=== PATIENT | female | born 1945 | race African-American/Black ===

== ENCOUNTER 2018-05-16 06:58 | Inpatient (IN) | payer MEDICARE ==
[2018-05-16] MEDS ORDERED: ASPIRIN PO ONE (07:15)
[2018-05-16 07:52] LABS: Basophils % (Auto) 0.6 % (0.0-1.8); Eosinophils # (Auto) 0.1 K/mm3 (0.0-0.4); Eosinophils % (Auto) 0.7 % (0.0-4.3); Hematocrit 37.3 % (30.3-42.9); Hemoglobin 12.4 gm/dl (10.1-14.3); Lymphocytes # (Auto) 1.8 K/mm3 (1.2-5.4); Lymphocytes % (Auto) 22.3 % (13.4-35.0); Mean Corpuscular HGB Conc 33 % (30-34); Mean Corpuscular Hemoglobin 32 pg (28-32); Mean Corpuscular Volume 96 fl (79-97); Monocytes # (Auto) 0.8 K/mm3 (0.0-0.8); Monocytes % (Auto) 10.7 % (0.0-7.3); Platelet Count 262 K/mm3 (140-440); Red Blood Count 3.91 M/mm3 (3.65-5.03); Red Cell Distribution Width 12.9 % (13.2-15.2)
[2018-05-16 08:03] LABS: BUN/Creatinine Ratio 29; Blood Urea Nitrogen 20 mg/dL (7-17); Calcium 9.2 mg/dL (8.4-10.2); Hemolysis Index 7
--- NOTE | 2018-05-16 08:47 | Emergency Department Report ---
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 Her past medical history includes hypertension and cholesterol as well as arthritis. She presents to the ER today with complaint of generalized weakness and inability to walk. She believes her symptoms started when she woke up at around 5:00 in the morning but is not certain. She admits to mild headache. She denies chest pain, shortness of breath, focal extremity weakness, denies vertigo, does admit to nonspecific range in the ears. She indicates no change in auditory acuity. Her symptoms are constant, they worsen when she attempts to walk, decreased with rest, and do not radiate anywhere. -: unknown Consistency: constant Improves with: rest Worsens with: movement Associated Symptoms: headaches, loss of appetite, malaise, weakness. denies: confusion, chest pain, cough, diaphoresis, fever/chills, nausea/vomiting, rash, seizure, shortness of breath, syncope - Related Data Allergies Allergy/AdvReac Type Severity Reaction Status Date / Time Penicillins Allergy Angioedema Verified 08/20/16 20:35 ED Review of Systems ROS: Stated complaint: ABD PAIN Other details as noted in HPI Constitutional: malaise Eyes: denies: eye discharge ENT: denies: epistaxis Respiratory: denies: cough Cardiovascular: denies: chest pain Gastrointestinal: denies: abdominal pain Genitourinary: denies: dysuria Musculoskeletal: denies: back pain Neurological: headache, weakness, abnormal gait Psychiatric: anxiety ED Past Medical Hx - Past Medical History Hx Hypertension: Yes Hx Arthritis: Yes Additional medical history: cholesterol, - Social History Smoking Status: Never Smoker Substance Use Type: None ED Physical Exam - General Limitations: Language Barrier General appearance: alert, in no apparent distress - Head Head exam: Present: atraumatic, normocephalic - Eye Eye exam: Present: normal appearance, PERRL, EOMI. Absent: nystagmus - ENT ENT exam: Present: normal exam, normal orophraynx, mucous membranes moist, TM's normal bilaterally, normal external ear exam, other (there is no mastoid tenderness) - Neck Neck exam: Present: normal inspection, full ROM. Absent: tenderness, meningismus - Respiratory Respiratory exam: Present: normal lung sounds bilaterally. Absent: respiratory distress, wheezes, rales, rhonchi, stridor, chest wall tenderness - Cardiovascular Cardiovascular Exam: Present: regular rate, normal rhythm, normal heart sounds. Absent: bradycardia, tachycardia, irregular rhythm, systolic murmur, diastolic murmur, rubs, gallop - GI/Abdominal GI/Abdominal exam: Present: soft, normal bowel sounds. Absent: distended, tenderness, guarding, rebound, rigid, pulsatile mass - Extremities Exam Extremities exam: Present: normal inspection, full ROM, normal capillary refill , other (2+ pulses noted in the bilateral upper, lower extremities. Compartments soft. No long bony tenderness. The pelvis is stable.). Absent: pedal edema, joint swelling, calf tenderness - Back Exam Back exam: Present: normal inspection, full ROM. Absent: tenderness, CVA tenderness (R), paraspinal tenderness, vertebral tenderness - Neurological Exam Neurological exam: Present: alert, CN II-XII intact, abnormal gait, other ( Extraocular movements intact. Tongue midline. No facial droop. Facial sensation intact to light touch in the V1, V2, V3 distribution bilaterally. 5 and 5 strength in 4 extremities.. Sensation is intact to light touch in 4 extremities.). Absent: motor sensory deficit - Psychiatric Psychiatric exam: Present: flat affect - Skin Skin exam: Present: warm, dry, intact, normal color. Absent: rash ED Course Vital Signs 05/16/18 05/16/18 05/16/18 07:03 09:25 09:30 Temperature 98.2 F Pulse Rate 65 62 60 Respiratory 16 14 16 Rate Blood Pressure 122/65 168/72 167/72 O2 Sat by Pulse 97 95 94 Oximetry 05/16/18 05/16/18 10:01 10:18 Temperature Pulse Rate 62 Respiratory 10 L 16 Rate Blood Pressure 169/61 O2 Sat by Pulse 95 98 Oximetry ED Medical Decision Making - Lab Data Result diagrams: 05/16/18 07:27 05/16/18 07:27 Vital Signs 05/16/18 05/16/18 05/16/18 07:03 09:25 09:30 Temperature 98.2 F Pulse Rate 65 62 60 Respiratory 16 14 16 Rate Blood Pressure 122/65 168/72 167/72 O2 Sat by Pulse 97 95 94 Oximetry 05/16/18 05/16/18 10:01 10:18 Temperature Pulse Rate 62 Respiratory 10 L 16 Rate Blood Pressure 169/61 O2 Sat by Pulse 95 98 Oximetry Lab Results 05/16/18 05/16/18 05/16/18 Range/Units 07:27 07:27 08:56 WBC 8.0 (4.5-11.0) K/mm3 RBC 3.91 (3.65-5.03) M/mm3 Hgb 12.4 (10.1-14.3) gm/dl Hct 37.3 (30.3-42.9) % MCV 96 (79-97) fl MCH 32 (28-32) pg MCHC 33 (30-34) % RDW 12.9 L (13.2-15.2) % Plt Count 262 (140-440) K/mm3 Lymph % (Auto) 22.3 (13.4-35.0) % [place] % (Auto) 10.7 H (0.0-7.3) % Eos % (Auto) 0.7 (0.0-4.3) % Baso % (Auto) 0.6 (0.0-1.8) % Lymph # 1.8 (1.2-5.4) K/mm3 [place] # 0.8 (0.0-0.8) K/mm3 Eos # 0.1 (0.0-0.4) K/mm3 Baso # 0.0 (0.0-0.1) K/mm3 Seg Neutrophils % 65.7 (40.0-70.0) % Seg Neutrophils # 5.2 (1.8-7.7) K/mm3 PT 13.5 (12.2-14.9) Sec. INR 0.98 (0.87-1.13) Sodium 141 (137-145) mmol/L Potassium 4.1 (3.6-5.0) mmol/L Chloride 101.6 (98-107) mmol/L Carbon Dioxide 23 (22-30) mmol/L Anion Gap 21 mmol/L BUN 20 H (7-17) mg/dL Creatinine 0.7 (0.7-1.2) mg/dL Estimated GFR > 60 ml/min BUN/Creatinine Ratio 29 % Glucose 116 H (65-100) mg/dL Calcium 9.2 (8.4-10.2) mg/dL Magnesium (1.7-2.3) mg/dL Total Creatine Kinase (30-135) units/L Troponin T < 0.010 (0.00-0.029) ng/mL Urine Color (Yellow) Urine Turbidity (Clear) Urine pH (5.0-7.0) Ur Specific [place] (1.003-1.030) Urine Protein (Negative) mg/dL Urine Glucose (UA) (Negative) mg/dL Urine Ketones (Negative) mg/dL Urine Blood (Negative) Urine Nitrite (Negative) Urine Bilirubin (Negative) Urine Urobilinogen (<2.0) mg/dL Ur Leukocyte Esterase (Negative) Urine WBC (Auto) (0.0-6.0) /HPF Urine RBC (Auto) (0.0-6.0) /HPF Urine Mucus /HPF 05/16/18 05/16/18 05/16/18 Range/Units 08:56 10:11 12:15 WBC (4.5-11.0) K/mm3 RBC (3.65-5.03) M/mm3 Hgb (10.1-14.3) gm/dl Hct (30.3-42.9) % MCV (79-97) fl MCH (28-32) pg MCHC (30-34) % RDW (13.2-15.2) % Plt Count (140-440) K/mm3 Lymph % (Auto) (13.4-35.0) % [place] % (Auto) (0.0-7.3) % Eos % (Auto) (0.0-4.3) % Baso % (Auto) (0.0-1.8) % Lymph # (1.2-5.4) K/mm3 [place] # (0.0-0.8) K/mm3 Eos # (0.0-0.4) K/mm3 Baso # (0.0-0.1) K/mm3 Seg Neutrophils % (40.0-70.0) % Seg Neutrophils # (1.8-7.7) K/mm3 PT (12.2-14.9) Sec. INR (0.87-1.13) Sodium (137-145) mmol/L Potassium (3.6-5.0) mmol/L Chloride (98-107) mmol/L Carbon Dioxide (22-30) mmol/L Anion Gap mmol/L BUN (7-17) mg/dL Creatinine (0.7-1.2) mg/dL Estimated GFR ml/min BUN/Creatinine Ratio % Glucose (65-100) mg/dL Calcium (8.4-10.2) mg/dL Magnesium 2.20 (1.7-2.3) mg/dL Total Creatine Kinase 202 H (30-135) units/L Troponin T < 0.010 (0.00-0.029) ng/mL Urine Color Colorless (Yellow) Urine Turbidity Clear (Clear) Urine pH 7.0 (5.0-7.0) Ur Specific [place] 1.030 (1.003-1.030) Urine Protein <15 mg/dl (Negative) mg/dL Urine Glucose (UA) Neg (Negative) mg/dL Urine Ketones Neg (Negative) mg/dL Urine Blood Neg (Negative) Urine Nitrite Neg (Negative) Urine Bilirubin Neg (Negative) Urine Urobilinogen < 2.0 (<2.0) mg/dL Ur Leukocyte Esterase Neg (Negative) Urine WBC (Auto) < 1.0 (0.0-6.0) /HPF Urine RBC (Auto) 1.0 (0.0-6.0) /HPF Urine Mucus Few /HPF - EKG Data -: EKG Interpreted by Ny EKG shows normal: sinus rhythm, axis, intervals, QRS complexes, ST-T waves - EKG Data When compared to previous EKG there are: previous EKG unavailable 05/16/18 13:15 Sinus, 65 bpm, normal axis, normal intervals, motion artifact, not a stemi - Radiology Data Radiology results: report reviewed, image reviewed Noncontrast CT scan of the brain is negative. The CT angiogram of the head and neck is negative for significant findings. - Medical Decision Making Differential diagnosis, including a not limited to: Labyrinthitis, subacute stroke, deconditioning, unsteady gait 73-year-old female with the complaint of unsteady gait. She may have woken up with symptoms, we do not have a exact onset. She has an NIH score of 0. She is therefore not a TPA candidate. A CT scan of the head is negative, and an angiogram does not demonstrate any lesions that would require transfer for emergent endovascular intervention. She was given aspirin, IV fluids and meclizine. Her symptoms did not change. She will therefore be admitted for further evaluation. Case was presented to the Hospital physician, Dr. Reid, who accepted the patient to his service. Critical care attestation.: If time is entered above; I have spent that time in minutes in the direct care of this critically ill patient, excluding procedure time. ED Disposition Clinical Impression: Unsteady gait Disposition: DC-09 OP ADMIT IP TO THIS HOSP Is pt being admited?: Yes Condition: Good Referrals: PRIMARY CARE, [Primary Care Provider] - 3-5 Days
[2018-05-16 09:12] LABS: INR 0.98 (0.87-1.13)
--- NOTE | 2018-05-16 09:19 | Cat Scan Report ---
CT HEAD WITHOUT CONTRAST: HISTORY: Dizzy. TECHNIQUE: Sequential 2.5mm CT images. COMPARISON: none. FINDINGS: Cerebral Parenchyma: Within normal limits. Cerebellum: Within normal limits. Brainstem: Within normal limits. Ventricles: Normal. Sella: Normal. Extra-axial spaces: Normal. Basal Cisterns: Normal. Intracranial Hemorrhage: None. Midline Shift: None. Calvarium: Normal. Sinuses: There is mild mucosal thickening and trace fluid in the sphenoid sinuses. The remaining visualized sinuses are clear. Mastoid Air Cells: Normal. Visualized Orbits: Normal. IMPRESSION: Cranial CT scan within normal limits. Mild sphenoid sinus disease, likely chronic.
[2018-05-16] MEDS ORDERED: NACL 0.9% 250ML 250 ML IV ONE (10:04)
[2018-05-16] MEDS ORDERED: ANTIVERT PO ONE (10:04)
[2018-05-16] MEDS ORDERED: ASPIRIN ONE (11:52)
--- NOTE | 2018-05-16 12:20 | Cat Scan Report ---
CTA HEAD: HISTORY: Dizzy, CVA. TECHNIQUE: Helical CT images after IV contrast with 0.625mm reformations. Sagittal and coronal reformats. Rotational MIP images. 3D volume rendering technique. FINDINGS: The arterial structures of the anterior and posterior circulations are patent throughout. No evidence for stenosis, occlusion or aneurysm. IMPRESSION: Unremarkable CTA head.
--- NOTE | 2018-05-16 12:24 | Cat Scan Report ---
CTA NECK: HISTORY: Dizzy, CVA. TECHNIQUE: Helical CT following IV contrast. Sagittal and coronal reformatted images. 3D volume rendering technique. Stenosis was calculated using NASCET criteria with the distal ICA being standard diameter. FINDINGS: The visualized aortic arch, innominate artery and proximal bilateral subclavian arteries are widely patent with less than 20% stenosis. Within the right carotid system: Less than 20% stenosis. Within the left carotid system: Less than 20% stenosis. The cervical vertebral arteries are patent with less than 20% stenosis. There is a prominent draining vein adjacent to the right transverse process of C1 which appears to communicate with the right sigmoid dural venous sinus and right jugular vein. The clinical significance of this is unclear. This may represent some type of dural AVM. Consider consultation with neurology. IMPRESSION: No hemodynamically significant stenosis is identified in the neck. Prominent draining vein at the level of C1 right transverse process as described above. AVM?
[2018-05-16 12:33] LABS: Bilirubin,Urine NEG (Negative); Blood,Urine NEG (Negative); Color,Urine Colorless (Yellow); Mucus,Urine FEW /HPF; Protein,Urine <15 mg/dL mg/dL (Negative); Urobilinogen,Urine < 2.0 mg/dL (<2.0); WBC,Urine < 1.0 /HPF (0.0-6.0)
[2018-05-16] MEDS ORDERED: MORPHINE IV PRN (21:29)
[2018-05-16] MEDS ORDERED: SODIUM CHLORIDE FLUSH SYRINGE 10 ML IV PRN (21:29)
[2018-05-16] MEDS ORDERED: PERCOCET 5/325 PO PRN (21:29)
[2018-05-16] MEDS ORDERED: ZOFRAN IV PRN (21:29)
[2018-05-16] MEDS ORDERED: NACL 0.9% 1000 ML 1,000 ML IV SCH (22:00)
[2018-05-16] MEDS: PEPCID PO SCH (22:22)
[2018-05-16] MEDS: SODIUM CHLORIDE FLUSH SYRINGE 10 ML IV SCH (22:23)
[2018-05-17 05:51] LABS: Basophils % (Auto) 0.6 % (0.0-1.8); Eosinophils # (Auto) 0.1 K/mm3 (0.0-0.4); Eosinophils % (Auto) 0.9 % (0.0-4.3); Hematocrit 35.8 % (30.3-42.9); Hemoglobin 11.8 gm/dl (10.1-14.3); Lymphocytes # (Auto) 2.1 K/mm3 (1.2-5.4); Mean Corpuscular HGB Conc 33 % (30-34); Mean Corpuscular Hemoglobin 32 pg (28-32); Mean Corpuscular Volume 96 fl (79-97); Monocytes # (Auto) 0.6 K/mm3 (0.0-0.8); Monocytes % (Auto) 9.9 % (0.0-7.3); Platelet Count 250 K/mm3 (140-440); Red Blood Count 3.72 M/mm3 (3.65-5.03); Red Cell Distribution Width 12.7 % (13.2-15.2)
[2018-05-17 06:05] LABS: Alanine Aminotransferase 8 units/L (7-56); Albumin 3.9 g/dL (3.9-5); BUN/Creatinine Ratio 44; Blood Urea Nitrogen 22 mg/dL (7-17); Calcium 8.9 mg/dL (8.4-10.2); Hemolysis Index 7
--- NOTE | 2018-05-17 07:40 | Event Note ---
Date: 05/16/18 See dictated H/p in reports Severe Debility
[2018-05-17] MEDS ORDERED: ANTIVERT PO PRN (07:49)
--- NOTE | 2018-05-17 08:41 | History and Physical Report ---
CHIEF COMPLAINT: 1. Dizziness. 2. Unable to walk. HISTORY OF PRESENT ILLNESS: A 73-year-old presents to the Emergency Room for severe dizziness and difficulty walking. The patient had some ataxic gait, while in the Emergency Room, hence the admission. PAST MEDICAL HISTORY: Significant for hypertension, arthritis, and hyperlipidemia. SOCIAL HISTORY: Does not smoke. SURGICAL HISTORY: Not available. With language barrier, could not elicited from the patient. FAMILY HISTORY: Also Unavailable. REVIEW OF SYSTEMS: Significant for unsteady walking and severe dizziness. Otherwise, review of systems negative. PHYSICAL EXAMINATION: GENERAL: Elderly female, cooperative during examination. VITAL SIGNS: Blood pressure 134/62, temperature 98.8, pulse is 69, respirations are 18. HEENT: Unremarkable. Pupils equal and reactive. NECK: Supple, no lymphadenopathy, no thyromegaly. LUNGS: Clear to auscultation and percussion. Good air entry. CARDIOVASCULAR: S1, S2 heard. No gallop, no murmur, no rub. Apical impulse in left fifth intercostal space and midclavicular line. ABDOMEN: Soft and benign. No hepatosplenomegaly. No guarding, no rigidity. Hernial orifices are normal. EXTREMITIES: Good pedal pulses. No pedal edema. CENTRAL NERVOUS SYSTEM: Alert and oriented x 4. Unsteady gait. The power is 5/5 in both upper extremities. NEUROLOGIC: No cranial nerve deficits. No diplopia. SKIN: Normal. LABORATORY DATA: Essentially normal. White count is 8000, H and H is 12.4 and 37.3, BUN and creatinine are 20 and 0.7, glucose is slightly high 116. Hemoglobin A1c is high at 6.3, total creatinine kinase is 202. ASSESSMENT AND PLAN: 1. Ataxia, probably secondary to dizziness. We will admit for observation. We will get MRI/MRA. 2. Vertigo. Meclizine added. 3. Hypertension. The patient on losartan. Continue losartan. 4. Hyperlipidemia. Continue pravastatin. 5. Arthritis. Continue diclofenac. 6. Deep venous thrombosis prophylaxis, Lovenox 40 mg subcutaneous daily. JOB# [id number] VSM/NTS
[2018-05-17] MEDS: COZAAR PO SCH (09:45)
[2018-05-17] MEDS: PEPCID PO SCH ×2 (09:45→22:09)
[2018-05-17] MEDS: SODIUM CHLORIDE FLUSH SYRINGE 10 ML IV SCH ×2 (09:46→22:10)
[2018-05-17] MEDS ORDERED: VOLTAREN DR PO SCH (10:00)
[2018-05-17] MEDS ORDERED: HCTZ PO SCH (10:00)
[2018-05-17] MEDS ORDERED: NON-FORMULARY (Losartan/Hydrochlorothiazide [Hyzaar 100-12.5 Tab] 1 EACH) PO SCH (10:00)
[2018-05-17] MEDS: HumaLOG SUB-Q SCH ×3 (12:41→22:09)
--- NOTE | 2018-05-17 13:26 | Progress Note ---
Assessment and Plan Assessment and plan: Ms. Chamorro is a 73 yo woman who speaks Panamanian with a history of hypertension, arthrititis and dyslipidemia who presented with severe dizziness (she is spinning) and difficulty walking * CT head without contrast IMPRESSION: Cranial CT scan within normal limits. Mild sphenoid sinus disease, likely chronic. * CTA neck IMPRESSION: No hemodynamically significant stenosis is identified in the neck. Prominent draining vein at the level of C1 right transverse process as described above. AVM? * CTA head unremarkable * MRI brain w/o contrast IMPRESSION: 1. 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 2. No evidence of acute/subacute infarct or hemorrhage. 3. Moderate multifocal chronic white matter microangiopathy. 4. Moderate frontal and temporal lobe cortical atrophy. * MRA brain w/o contrast reported as normal study * Carotid doppler reported as unremarkable Ataxia, ?vestibular dysfunction, PT ordered. Vertigo: added antivert around the clock (language barrier) x 1 day, will give a dose of steroids, Hypertension accelerated with urgency: ECHO pending, d/c nss ivf, use iv hydralazine prn. Dyslipidemia: treat with statin OA: treat with tylenol Anticipate discharge tomorrow if symptoms improve, ECHO pending also History Interval history: Patient was seen and examined. Follow-up on current diagnosis. Overnight uneventful. Patient denies any chest pain, shortness breath, nausea/vomiting or severe headaches. Imaging, nursing note, chart, labs and old chart reviewed. Discussed with patient. [employer] services used. Hospitalist Physical - Physical exam Narrative exam: GEN: WDWN, NAD, Awake, Alert, Orientated x 3 HEENT: NCAT, EOMI, PERRL, OP Clear NECK: supple, no adenopathy, no thyromegaly, no JVD CVS/HEART: RRR, normal S1S2, pulses present bilaterally CHEST/LUNGS: CTA B, Symmetrical chest expansion, good air entry bilaterally GI/Abdomen: soft, NTND, good bowel sounds, no guarding or rebound /Bladder: no suprapubic tenderness, no CVA or paraspinal tenderness EXT/Skin: no c/c/e, no obvious rash MSK: FROM x 4 Neuro: CN 2-12 grossly intact, no new focal deficits Psych: calm - Constitutional Vitals: Temp Pulse Resp BP Pulse Ox 98.0 F 67 20 163/66 94 05/17/18 11:51 05/17/18 11:51 05/17/18 11:51 05/17/18 11:51 05/17/18 11:51 Results - Labs CBC & Chem 7: 05/17/18 05:25 05/17/18 05:25 Labs: Laboratory Last Values WBC 5.7 K/mm3 (4.5-11.0) 05/17/18 05:25 RBC 3.72 M/mm3 (3.65-5.03) 05/17/18 05:25 Hgb 11.8 gm/dl (10.1-14.3) 05/17/18 05:25 Hct 35.8 % (30.3-42.9) 05/17/18 05:25 MCV 96 fl (79-97) 05/17/18 05:25 MCH 32 pg (28-32) 05/17/18 05:25 MCHC 33 % (30-34) 05/17/18 05:25 RDW 12.7 % (13.2-15.2) L 05/17/18 05:25 Plt Count 250 K/mm3 (140-440) 05/17/18 05:25 Lymph % (Auto) 37.0 % (13.4-35.0) H 05/17/18 05:25 [place] % (Auto) 9.9 % (0.0-7.3) H 05/17/18 05:25 Eos % (Auto) 0.9 % (0.0-4.3) 05/17/18 05:25 Baso % (Auto) 0.6 % (0.0-1.8) 05/17/18 05:25 Lymph # 2.1 K/mm3 (1.2-5.4) 05/17/18 05:25 [place] # 0.6 K/mm3 (0.0-0.8) 05/17/18 05:25 Eos # 0.1 K/mm3 (0.0-0.4) 05/17/18 05:25 Baso # 0.0 K/mm3 (0.0-0.1) 05/17/18 05:25 Seg Neutrophils % 51.6 % (40.0-70.0) 05/17/18 05:25 Seg Neutrophils # 2.9 K/mm3 (1.8-7.7) 05/17/18 05:25 PT 13.5 Sec. (12.2-14.9) 05/16/18 08:56 INR 0.98 (0.87-1.13) 05/16/18 08:56 Sodium 143 mmol/L (137-145) 05/17/18 05:25 Potassium 4.5 mmol/L (3.6-5.0) 05/17/18 05:25 Chloride 104.3 mmol/L (98-107) 05/17/18 05:25 Carbon Dioxide 26 mmol/L (22-30) 05/17/18 05:25 Anion Gap 17 mmol/L 05/17/18 05:25 BUN 22 mg/dL (7-17) H 05/17/18 05:25 Creatinine 0.5 mg/dL (0.7-1.2) L 05/17/18 05:25 Estimated GFR > 60 ml/min 05/17/18 05:25 BUN/Creatinine Ratio 44 % 05/17/18 05:25 Glucose 100 mg/dL (65-100) 05/17/18 05:25 Hemoglobin A1c 6.3 % (4-6) H 05/16/18 07:27 Calcium 8.9 mg/dL (8.4-10.2) 05/17/18 05:25 Magnesium 2.20 mg/dL (1.7-2.3) 05/16/18 08:56 Total Bilirubin 0.30 mg/dL (0.1-1.2) 05/17/18 05:25 AST 19 units/L (5-40) 05/17/18 05:25 ALT 8 units/L (7-56) 05/17/18 05:25 Alkaline Phosphatase 61 units/L (35-129) 05/17/18 05:25 Total Creatine Kinase 202 units/L (30-135) H 05/16/18 08:56 Troponin T < 0.010 ng/mL (0.00-0.029) 05/16/18 13:58 Total Protein 6.9 g/dL (6.3-8.2) 05/17/18 05:25 Albumin 3.9 g/dL (3.9-5) 05/17/18 05:25 Albumin/Globulin Ratio 1.3 % 05/17/18 05:25 Urine Color Colorless (Yellow) 05/16/18 12:15 Urine Turbidity Clear (Clear) 05/16/18 12:15 Urine pH 7.0 (5.0-7.0) 05/16/18 12:15 Ur Specific [place] 1.030 (1.003-1.030) 05/16/18 12:15 Urine Protein <15 mg/dl mg/dL (Negative) 05/16/18 12:15 Urine Glucose (UA) Neg mg/dL (Negative) 05/16/18 12:15 Urine Ketones Neg mg/dL (Negative) 05/16/18 12:15 Urine Blood Neg (Negative) 05/16/18 12:15 Urine Nitrite Neg (Negative) 05/16/18 12:15 Urine Bilirubin Neg (Negative) 05/16/18 12:15 Urine Urobilinogen < 2.0 mg/dL (<2.0) 05/16/18 12:15 Ur Leukocyte Esterase Neg (Negative) 05/16/18 12:15 Urine WBC (Auto) < 1.0 /HPF (0.0-6.0) 05/16/18 12:15 Urine RBC (Auto) 1.0 /HPF (0.0-6.0) 05/16/18 12:15 Urine Mucus Few /HPF 05/16/18 12:15
--- NOTE | 2018-05-17 13:50 | Magnetic Resonance Report ---
MRI BRAIN WITHOUT CONTRAST: 05/17/18 CLINICAL: Ataxia. TECHNIQUE: Axial diffusion, T1, T2, gradient echo T2*, coronal and axial FLAIR and sagittal T1 sequences on a 1.5 June magnet. FINDINGS: Moderate enlargement of frontal and temporal lobe sulci and mild enlargement of the ventricles.. No restricted diffusion. Moderate bilateral multifocal deep white matter and subcortical white matter hyperintensities on FLAIR and T2. Relatively symmetric bilateral cerebellar cortical edema with sulcal effacement on T2. No mass identified. There is a tiny slitlike chronic right cerebellar lacunar infarct. No hemorrhage or extra-axial collection. The brainstem is normal. Normal pituitary and optic chiasm. Intact vascular flow voids. Normal sinuses. The orbits, and soft tissues are normal. Normal calvarium and skull base. IMPRESSION: 1. 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 2. No evidence of acute/subacute infarct or hemorrhage. 3. Moderate multifocal chronic white matter microangiopathy. 4. Moderate frontal and temporal lobe cortical atrophy.
--- NOTE | 2018-05-17 13:52 | Magnetic Resonance Report ---
MRA HEAD WITHOUT CONTRAST: 05/17/18 CLINICAL: Ataxia. TECHNIQUE: Axial 3-D [id number] MR angiography of the [place] of [place] with review of axial source images. FINDINGS: Intact [place] with no aneurysm, stenosis or occlusion. Symmetric blood flow in the anterior, middle and posterior cerebral arteries. Normal basilar and vertebral arteries. IMPRESSION: Normal study.
[2018-05-17] MEDS ORDERED: D5W IV ONE (15:28)
[2018-05-17] MEDS ORDERED: SOLU MEDROL IV ONE (15:28)
[2018-05-17] MEDS ORDERED: APRESOLINE IV PRN (15:31)
[2018-05-17] MEDS: ANTIVERT PO SCH (16:15)
[2018-05-17] MEDS: TYLENOL PO PRN (20:07)
[2018-05-17] MEDS ORDERED: LOVENOX SUB-Q SCH (22:00)
[2018-05-17] MEDS ORDERED: PRAVACHOL PO SCH (22:00)
[2018-05-18] MEDS: ANTIVERT PO SCH (03:50)
[2018-05-18] MEDS: TYLENOL PO PRN ×2 (03:55→10:25)
[2018-05-18] MEDS: HumaLOG SUB-Q SCH (08:58)
[2018-05-18] MEDS ORDERED: ATIVAN PO PRN (09:46)
[2018-05-18] MEDS: COZAAR PO SCH (10:18)
[2018-05-18] MEDS: SODIUM CHLORIDE FLUSH SYRINGE 10 ML IV SCH (10:18)
[2018-05-18] MEDS: PEPCID PO SCH (10:19)
--- NOTE | 2018-05-18 11:31 | Discharge Summary ---
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 Chamorro is a 73 yo woman who speaks Portuguese with a history of hypertension, arthrititis and dyslipidemia who presented with severe dizziness (she is spinning) and difficulty walking * CT head without contrast IMPRESSION: Cranial CT scan within normal limits. Mild sphenoid sinus disease, likely chronic. * CTA neck IMPRESSION: No hemodynamically significant stenosis is identified in the neck. Prominent draining vein at the level of C1 right transverse process as described above. AVM? * CTA head unremarkable * MRI brain w/o contrast IMPRESSION: 1. 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 2. No evidence of acute/subacute infarct or hemorrhage. 3. Moderate multifocal chronic white matter microangiopathy. 4. Moderate frontal and temporal lobe cortical atrophy. * MRA brain w/o contrast reported as normal study * Carotid doppler reported as unremarkable Ataxia, with vestibular dysfunction, PT recommend outpat vestibular rehab. No stroke/cva/TIA Vertigo: added antivert around the clock (language barrier) x 1 day, will give a dose of steroids, Hypertension accelerated with urgency: ECHO reviewed Dyslipidemia: treat with statin OA: treat with tylenol Son in Law, Jessi Chamorro was the [employer] Former, [place] was offered. Patient needs Vestibular rehab, [place] hall[facility] maneuvers as outpatient will be beneficially, She will see her PCP, Dr. Sowmya Cunningham. Disposition: DC-01 TO HOME OR SELFCARE Time spent for discharge: 31 minutes Core Measure Documentation - Palliative Care Palliative Care/ Comfort Measures: Not Applicable - Core Measures Any of the following diagnoses?: none - VTE Discharge Requirements Deep Vein Thrombosis/Pulmonary Embolism Present on Admission: No Has pt received <5 days of overlap therapy or INR<2.0: No Anticoagulant overlap therapy prescribed at discharge: No Contraindication No Overlap Therapy order at DC: Not Indicated Exam - Physical Exam Narrative exam: GEN: WDWN, NAD, Awake, Alert, Orientated x 3 HEENT: NCAT, EOMI, PERRL, OP Clear NECK: supple, no adenopathy, no thyromegaly, no JVD CVS/HEART: RRR, normal S1S2, pulses present bilaterally CHEST/LUNGS: CTA B, Symmetrical chest expansion, good air entry bilaterally GI/Abdomen: soft, NTND, good bowel sounds, no guarding or rebound /Bladder: no suprapubic tenderness, no CVA or paraspinal tenderness EXT/Skin: no c/c/e, no obvious rash MSK: FROM x 4 Neuro: CN 2-12 grossly intact, no new focal deficits Psych: calm - Constitutional Vitals: Temp Pulse Resp BP Pulse Ox 97.8 F 67 18 165/72 93 05/18/18 05:49 05/18/18 10:18 05/18/18 05:49 05/18/18 10:18 05/18/18 05:49 Plan Activity: no driving until cleared by PCP, up only with assistance, fall precautions, other (no strenous activities until cleared by PCP) Diet: low salt Special Instructions: physical therapy Follow up with: PRIMARY CAREMD [Primary Care Provider] - 3-5 Days KD XAVIER MD [Staff Physician] - 7 Days Prescriptions: HYDROcodone/APAP 5-325 [[place] 5/325] 1 each PO Q6HR PRN #8 tablet PRN Reason: Pain , Severe (7-10) Meclizine [Antivert] 25 mg PO Q8H PRN #30 tablet PRN Reason: Vertigo Ondansetron [Zofran Odt] 4 mg PO Q4H PRN #12 tab.rapdis PRN Reason: Nausea
[2018-05-18 12:27] VITALS: BP 136/55
== END 2018-05-18 17:20 | disposition home or self-care (01) | DRG 79 ==
LOC: ED 06:58 → 4A 13:24 → 3A 18:08
PROVIDERS: ADMIT Internal Medicine; ATTEND Internal Medicine
DX: I67.4 Hypertensive encephalopathy (principal); H81.90 Unspecified disorder of vestibular function, unspecified ear; I16.0 Hypertensive urgency; M19.90 Unspecified osteoarthritis, unspecified site; Z88.0 Allergy status to penicillin; I10 Essential (primary) hypertension; E78.5 Hyperlipidemia, unspecified; J32.3 Chronic sphenoidal sinusitis; I73.9 Peripheral vascular disease, unspecified
CPT/HCPCS: 36415; 70450; 70496; 70498; 70544; 70551; 80048; 80053; 81001; 82550; 82962; 83036; 83735; 84484; 85025; 85610; 93005; 93010; 93306; 93880; A9270-GY; G8978-GP; G8979-GP; J1650; J1815; J2930; J7030; J7050; Q9967